=== PATIENT | male | born 1985 | race Asian ===

== ENCOUNTER 2017-05-11 21:45 | Emergency (ER) | payer OTHER ==
[~2017-05-11] VITALS: Ht 172.7 cm; Wt 72.0 kg
[2017-05-11 21:50] VITALS: TEMP 37.1; Ht 172.7 cm; Wt 72.0 kg
--- NOTE | 2017-05-11 22:55 | EMERGENCY ROOM VISIT NOTE ---
History First contact with patient: 21:55 Chief Complaint: WEAKNESS Stated Complaint: NAUSEA, SORE THROAT Nursing Triage Summary: Pt presents S for evaluation of weakness, nausea, and sorethroat x 2 days. Noticed fever today. History of Present Illness The patient is a 31 year old male who presents to the Emergency Room with complaints of sore throat with nausea and fever for the past few days. Immunizations are current. No recent travel. Patient denies chest pain, dyspnea, neck stiffness, abdominal pain, vomiting, diarrhea. He is tolerating by mouth fluids and food. Tmax 38.8. Review of Systems See HPI for pertinent positives & negatives. A total of 10 systems reviewed and were otherwise negative. Past Medical/Surgical History None Social History Smoking Status: Never Smoker Smokeless Tobacco Use: No Drug Use: none Occupation Status: [employer] student Current/Historical Medications No Active Prescriptions or Reported Meds Physical Exam Vital Signs Date Time Temp Pulse Resp B/P (MAP) Pulse Ox O2 Delivery O2 Flow Rate FiO2 05/11/17 21:50 37.1 87 18 137/98 98 Room Air Physical Exam VITALS: Vitals are noted on the nurse's note and reviewed by myself. Vital signs stable. GENERAL: Pleasant male, in no acute distress, nondiaphoretic, well-developed well-nourished. SKIN: The skin was without rashes, erythema, edema, or bruising. There is no tenting of the skin. Capillary reflex less than 2 seconds. HEAD: Normocephalic atraumatic. EARS: External auditory canals clear, tympanic membranes pearly gutiérrez without erythema or effusion bilaterally. EYES: Pupils equal round and reactive to light and accommodation. Conjunctivae without injection, sclerae without icterus. Extraocular movements intact. NOSE: Patent, turbinates without inflammation or discharge. No sinus tenderness. MOUTH: Mucous membranes moist. Tonsils are enlarged. Pharynx with erythema without exudate. Uvula midline. Airway patent. Tongue does not deviate. NECK: Supple without nuchal rigidity. No lymphadenopathy. No thyromegaly. Cervical spine is nontender. No JVD. No Meningeal signs HEART: Regular rate and rhythm without murmurs gallops or rubs. LUNGS: Clear to auscultation bilaterally without wheezes, rales or rhonchi. No dullness to percussion. No retractions or accessory muscle use. ABDOMEN: Positive bowel sounds x 4. Normal tympanic percussion. Soft, nontender, without masses or organomegaly. Posada sign negative. No guarding or rebound tenderness. MUSCULOSKELETAL: No muscle atrophy, erythema, or edema noted. NEURO: Patient was alert and oriented to person place and time. Normal sensation to light and sharp touch. No focal neurological deficits. Medical Decision & Procedures Laboratory Results Test 05/11/17 22:10 ED Course Prior records/ancillary studies reviewed. Triage Nursing notes reviewed. Additional history obtained from nursing. The patient's history was concerning for a sore throat. Differential diagnosis: Etiologies such as viral syndrome, tonsillitis, streptococcal pharyngitis, mononucleosis, peritonsillar abscess, retropharyngeal abscess, otitis, pneumonia , influenza, as well as others were entertained. ER treatment provided: po fluids On reassessment the patient felt better. Diagnostics interpreted by me: The labs revealed neg strep and sent for C&S This appears to be consistent with pharyngitis most likely viral in etiology. Patient had no signs of meningitis, abscess or airway compromise. He was neurovascularly and neurologically intact. He is well-appearing. He was advised to take medications as directed, stay well-hydrated and to follow-up with family care in a few days or here in the ER sooner for high fevers, lethargy, neck stiffness, worsening signs or symptoms or as needed. By the evaluation outlined above emergent etiologies such as peritonsillar abscess, retropharyngeal abscess, otitis, pneumonia, meningitis, urinary tract infection , sepsis, bacteremia, as well as others were deemed relatively unlikely. The pt informed about the findings as listed above. All questions were answered and pleased with the treatment. Return instructions were outlined and the patient was discharged in stable condition. Referral: The patient was referred back to their primary care physician for follow-up in 2 to 3 days for a recheck of the current condition. Medical Decision as above Medication Reconcilliation Current Medication List: was personally reviewed by me Blood Pressure Screening Patient's blood pressure: Normal blood pressure Impression Primary Impression: Pharyngitis Departure Information Dispostion Home / Self-Care Condition GOOD Prescriptions No Active Prescriptions or Reported Meds Patient Instructions My [facility] [employer] Additional Instructions Acetaminophen(Tylenol) may be used for fever or pain. Use 1000mg every six hours as needed. Avoid using more than 3000mg in a 24 hour period. (AND/OR) Ibuprofen(Motrin, Advil) may be used for fever or pain. Use 600mg every six hours as needed. Take with food. Avoid using more than 2400mg in a 24 hour period. Do not use 2400mg per day for more than three consecutive days without physician direction. Prolonged inappropriate use can lead to stomach upset or ulcers. Afrin nasal spray: 2-3 sprays to each nostril twice daily as needed for congestion. Do not use for more than 3-4 days because it can lead to worsening rebound congestion. Pseudoephedrine(Sudaphed): 30-60mg every 6 hours as needed for nasal congestion. Do not take this with other stimulant products or supplements. Rest and drink plenty of fluids. Controlling your fever with Tylenol and Ibuprofen as above will make you feel better. Wash your hands after nose blowing, sneezing, or coughing. Most germs are spread through contact, therefore improper hygiene may result in your close contacts and loved ones becoming ill just like you. Continue current medications. Return to the ER for severe headache, neck stiffness, chest pain, difficulty breathing, fevers, vomiting, worsening of your condition, or as needed. Follow up with your primary physician this week for a recheck of your current condition. Problem Qualifiers Primary Impression: Pharyngitis Pharyngitis/tonsillitis etiology: unspecified etiology Qualified Codes: J02.9 - Acute pharyngitis, unspecified
[2017-05-11 23:02] VITALS: BP 121/81; PULSE 71; O2SAT 97
[2017-05-11 23:45] LABS: INFLUENZA A PCR Neg for Influ A (NEG); INFLUENZA B PCR Neg for Influ B (NEG)
== END 2017-05-11 23:02 | disposition home or self-care (01) ==
LOC: EDBD 21:48 → C.EDB 21:48
DX: J02.9 Acute pharyngitis, unspecified (principal); R11.0 Nausea; R53.1 Weakness

== ENCOUNTER 2017-10-12 03:35 | Emergency (ER) | payer OTHER ==
[~2017-10-12] VITALS: Ht 172.7 cm; Wt 70.0 kg
[2017-10-12 03:39] VITALS: TEMP 36.6; Ht 172.7 cm; Wt 70.0 kg
[2017-10-12 04:08] VITALS: BP 134/98; PULSE 75; O2SAT 98
--- NOTE | 2017-10-12 04:11 | EMERGENCY ROOM VISIT NOTE ---
History First contact with patient: 03:55 Chief Complaint: SYNCOPE (NEAR SYNCOPE) Stated Complaint: DIZZY,ANXIETY Nursing Triage Summary: Pt presents from Mother Baby floor where his had a baby yesterday. Pt reports he awoke approximately 20min ago from sleep. When he woke up he reports "I had the dryest mouth I have ever had". Pt stood up and reports his mouth continued to feel very dry and then his bilateral lower face went numb. Then his bilateral hands went numb. pt reports he felt very cold and felt like he "was close to passing out". Denies LOC. Pt reports he began to shake all over. Pt reports he called for the nurse and they sent him to ER. Pt reports he ate dinner last night at 2200 and felt nauseated after dinner. Pt reports "now I feel good. I feel better". No shaking at this time. History of Present Illness The patient is a 32 year old male who presents to the Emergency Room with complaints of feeling lightheaded. The patient was upstairs on labor and delivery, where his had a baby yesterday. He states that 20 minutes ago, he was woken up because the nurse was coming to help them feed the baby. When he woke up, his mouth felt very dry. He states that when he stood up, he had numbness around his mouth and of both of his hands. He felt very cold and shaky and felt like he was going to pass out. He states that he became very worried that he could be having a stroke and called for the nurse, who sent him here. He has drank some water and states that he feels much better at this time. He does state he has been eating and drinking normally, but admits he did not drink very much water throughout the day. He denies chest pain. He denies any medical problems. Review of Systems A complete 10 point review of systems was reviewed with the patient with pertinent positives and negatives as per history of present illness. All else were negative. Past Medical/Surgical History Medical Problems: (1) No significant active problems Social History Smoking Status: Never Smoker Drug Use: none Occupation Status: [email or web address] student Current/Historical Medications No Active Prescriptions or Reported Meds Physical Exam Vital Signs Date Time Temp Pulse Resp B/P (MAP) Pulse Ox O2 Delivery O2 Flow Rate FiO2 10/12/17 04:08 75 16 134/98 98 Room Air 10/12/17 03:39 36.6 86 24 153/102 100 Room Air Physical Exam VITALS: Vitals are noted on the nurse's note and reviewed by myself. Vital signs stable. GENERAL: This is a 32-year-old male, in no acute distress, nondiaphoretic, well- developed well-nourished. SKIN: The skin was without rashes. HEAD: Normocephalic atraumatic. EARS: External auditory canals clear, tympanic membranes pearly gutiérrez without erythema or effusion bilaterally. EYES: Pupils equal round and reactive to light and accommodation. Extraocular movements intact. MOUTH: Mucous membranes moist. Tonsils are not enlarged. Pharynx without erythema or exudate. NECK: Supple without nuchal rigidity. No lymphadenopathy. HEART: Regular rate and rhythm without murmurs gallops or rubs. LUNGS: Clear to auscultation bilaterally without wheezes, rales or rhonchi. MUSCULOSKELETAL: Normal gait. Strength 5/5 throughout. NEURO: Patient was alert and oriented to person place and time. No focal neurological deficits. Medical Decision & Procedures Medical Decision Differential diagnosis includes anxiety, dehydration, electrolyte abnormality, infection, among others. The patient is a 32-year-old male who presents today complaining of lightheadedness, dry mouth and tingling in bilateral hands. The patient's recently gave . I suspect that he was likely dehydrated and also somewhat anxious. On my examination, the patient had no complaints and symptoms have completely resolved. He requested to be discharged back to labor and delivery. I did offer further testing including cardiac workup and labs, but the patient declined. I do think this is reasonable. Vital signs are all within normal limits in the ER. He was advised to follow-up with his PCP this week for a recheck. He verbalized understanding of my assessment and treatment plan and was discharged home in good condition. Medication Reconcilliation Current Medication List: was personally reviewed by me Blood Pressure Screening Patient's blood pressure: Normal blood pressure Impression Primary Impression: Pre-syncope Departure Information Dispostion Home / Self-Care Condition GOOD Prescriptions No Active Prescriptions or Reported Meds Referrals No Doctor, Assigned (PCP) Patient Instructions My [facility] Additional Instructions As with any visit to the emergency department, you should follow-up with your primary care provider. Rest and drink plenty of fluids to stay well-hydrated today. Return to the emergency department with any further episodes of symptoms.
== END 2017-10-12 04:13 | disposition home or self-care (01) ==
LOC: C.EDB 03:36 → C.EDA 04:13
DX: R55 Syncope and collapse (principal)